=== PATIENT | female | born 1950 | race Caucasian/White ===

== ENCOUNTER 2018-01-14 06:28 | Day surgery (SDC) | payer MEDICARE, OTHER ==
[2018-01-14] MEDS ORDERED: Lactated Ringers 1,000 ML IV SCH (07:00)
[2018-01-14] MEDS ORDERED: Propofol 200 MG/20 ML SDV ONE (07:43)
[2018-01-14] MEDS ORDERED: fentaNYL 100 MCG/2 ML SDV ONE (07:44)
--- NOTE | 2018-01-14 11:59 | OR ---
PREOPERATIVE DIAGNOSES: Positive FIT test and history of polyps. POSTOPERATIVE DIAGNOSES: 1. Moderate sigmoid diverticulosis. 2. Colonic polyps x3. PROCEDURE PROPOSED: Total flexible colonoscopy. PROCEDURE DONE: Total flexible colonoscopy with polypectomy x3. INDICATION: This is a 68-year-old female, who comes in for recommended colonoscopy. She has a history of polyps. She was also found on recent annual physical to have a positive FIT test and was referred for colonoscopy. TECHNIQUE: The patient was brought to the endoscopy suite, placed in left lateral decubitus position. She was sedated per [employer] with propofol. The flexible video colonoscope was then passed transanally and under visualization advanced to the cecum. She was found to have a small polyp right in the cecum, removed by cold biopsy forceps. The ascending and transverse colon were unremarkable. The descending colon revealed some diverticulosis and the sigmoid colon revealed more moderate and significant diverticulosis and at 40 cm from the anal verge, there was a polyp removed by hot snare technique and retrieved with suction. There was another polyp found at 10 cm, again removed by hot snare technique and retrieved with suction. The remainder of the rectum was normal, as the scope was then withdrawn. The patient tolerated procedure well. FINAL IMPRESSION: 1. Colonic polyps x3 removed. 2. Sigmoid diverticulosis. PLAN: She will be sent a letter with pathology report. I felt that she should continue with colonoscopies every 5 years hereafter. SCM: 01/14/2018 08:21:10 MODL: 01/14/2018 10:57:29 /[id number]
--- NOTE | 2018-01-21 07:47 | LETTER ---
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 This probably does not need any further tension, but I feel that you should consult with your family physician, TORI Ledesma for possible need to be referred to a GI specialist to make further opinion regarding this lesion. I would recommend you proceed to make an appointment with your family physician. Respectfully,
== END 2018-01-14 09:25 | disposition home or self-care (01) ==
LOC: VM.SDS 06:28
PROVIDERS: ATTEND Surgery
DX: C7A.026 Malignant carcinoid tumor of the rectum (principal); D12.0 Benign neoplasm of cecum; K63.5 Polyp of colon; K57.30 Diverticulosis of large intestine without perforation or abscess without bleeding; E11.9 Type 2 diabetes mellitus without complications; I10 Essential (primary) hypertension; E78.00 Pure hypercholesterolemia, unspecified; E66.9 Obesity, unspecified; Z68.30 Body mass index [BMI] 30.0-30.9, adult; E03.9 Hypothyroidism, unspecified; K21.9 Gastro-esophageal reflux disease without esophagitis; Z86.010 Personal history of colon polyps; Z79.84 Long term (current) use of oral hypoglycemic drugs; Z79.899 Other long term (current) drug therapy; Z88.0 Allergy status to penicillin; Z88.1 Allergy status to other antibiotic agents
CPT/HCPCS: 00811; 45380; 45385; 82962; 88305; 88341; 88342; J2704; J3010; J7120